=== PATIENT | female | born 1995 | race Two or more races ===

== ENCOUNTER 2019-01-26 15:28 | Emergency (ER) | payer MEDICAID ==
[~2019-01-26] VITALS: Ht 162.6 cm; Wt 74.8 kg
[2019-01-26 16:42] VITALS: BP 121/80
== END 2019-01-26 16:46 | disposition home or self-care (01) ==
LOC: ER 15:30
DX: S81.012D Laceration without foreign body, left knee, subsequent encounter (principal); X58.XXXD Exposure to other specified factors, subsequent encounter

== ENCOUNTER 2019-02-15 16:21 | Emergency (ER) | payer MEDICAID ==
[~2019-02-15] VITALS: Ht 162.6 cm; Wt 74.8 kg
[2019-02-15 16:32] VITALS: BP 108/66
== END 2019-02-15 17:58 | disposition home or self-care (01) ==
LOC: ER 16:25
DX: S81.012D Laceration without foreign body, left knee, subsequent encounter (principal); X58.XXXD Exposure to other specified factors, subsequent encounter

== ENCOUNTER 2019-08-24 19:39 | Emergency (ER) | payer MEDICAID ==
[~2019-08-24] VITALS: Ht 162.6 cm; Wt 84.8 kg
[2019-08-24 21:31] VITALS: BP 123/86
== END 2019-08-24 21:55 | disposition home or self-care (01) ==
LOC: ER 19:39
DX: S60.521A Blister (nonthermal) of right hand, initial encounter (principal); L08.9 Local infection of the skin and subcutaneous tissue, unspecified; L25.9 Unspecified contact dermatitis, unspecified cause; X58.XXXA Exposure to other specified factors, initial encounter; Y93.89 Activity, other specified; Y92.89 Other specified places as the place of occurrence of the external cause; Y99.8 Other external cause status